=== PATIENT | male | born 1985 | race Caucasian/White ===

== ENCOUNTER 2017-02-10 11:08 | Outpatient (CLI) ==
[2015-04-29 09:22] VITALS: BMI 29.0
[2017-02-10 11:36] LABS: BASOPHILS % (AUTO) 0.5 % (0.0-3.0); EOSINOPHILS # (AUTO) 0.3 K/ul (0.0-0.7); EOSINOPHILS % (AUTO) 3.9 % (0.0-7.0); HEMATOCRIT 44.4 % (42.0-52.0); HEMOGLOBIN 15.5 g/dl (14.0-18.0); IMMATURE GRANULOCYTE % (AUTO) 0.5 % (0.0-5.0); LYMPHOCYTES # (AUTO) 2.3 K/uL (0.60-3.4); LYMPHOCYTES % (AUTO) 27.6 (10.0-50.0); MEAN CORPUSCULAR HEMOGLOBIN 29.2 pg (27.0-31.0); MEAN CORPUSCULAR HGB CONC 34.9 (31.8-35.4); MEAN CORPUSCULAR VOLUME 83.8 fl (80.0-94.0); MONOCYTES # (AUTO) 0.9 K/uL (0.4-2.0); MONOCYTES % (AUTO) 10.9 (0-10); NEUTROPHILS # (AUTO) 4.7 K/ul (2.0-6.9); NEUTROPHILS % (AUTO) 56.6; PLATELET COUNT 262 10^3/uL (140-440); WHITE BLOOD COUNT 8.37 K/ul (4.2-10.2)
[2017-02-10 11:41] LABS: BILIRUBIN,URINE Negative (NEGATIVE); KETONES,URINE Negative (NEGATIVE); LEUKOCYTE ESTERASE ,URINE Negative (NEGATIVE); NITRITE,URINE Negative (NEGATIVE); PROTEIN,URINE Negative (NEGATIVE); URINE, BLOOD Negative (NEGATIVE)
[2017-02-10 11:53] LABS: ADD URINE MICROSCOPIC NO
[2017-02-10 11:54] LABS: COCAIN SCREEN,URINE POSITIVE (NEGATIVE)
[2017-02-10 12:17] LABS: ALBUMIN 3.9 g/dL (3.4-5.0); ALBUMIN/GLOBULIN RATIO 1.22; ANION GAP 15.1; BILIRUBIN,TOTAL 0.32 mg/dL (0.00-1.20); BUN/CREATININE RATIO 11.22; CALCIUM 9.5 mg/dL (8.2-10.2); CHOL/HDL RATIO 3.6 (4.5-6.4); CREATININE 0.98 mg/dL (0.60-1.10); POTASSIUM 4.1 mmol/L (3.5-5.1); TOTAL PROTEIN 7.1 g/dL (6.4-8.2)
== END 2017-02-10 11:09 | disposition home or self-care (01) ==
LOC: LAB 11:08
PROVIDERS: ATTEND Family Medicine
DX: Z00.00 Encounter for general adult medical examination without abnormal findings (principal)
CPT/HCPCS: 36415; 80053; 80061; 80306; 81001; 84439; 84443; 85025

== ENCOUNTER 2017-04-03 11:47 | Outpatient (CLI) ==
[2015-04-29 09:22] VITALS: BMI 29.0
== END 2017-04-03 11:48 | disposition home or self-care (01) ==
LOC: CAR 11:47
PROVIDERS: ATTEND Family Medicine
DX: R00.0 Tachycardia, unspecified (principal); Z86.59 Personal history of other mental and behavioral disorders
CPT/HCPCS: 93005; 93010

== ENCOUNTER 2017-04-13 15:23 | Emergency (ER) ==
[2017-04-13 15:29] VITALS: BP 112/75; TEMP 98; BMI 27.4
[2017-04-13] MEDS ORDERED: LIDOCAINE HCL 4% 5 ML AMP INJ STA (15:31)
[2017-04-13] MEDS ORDERED: TETANUS DIPHTHERIA TOXOIDS IM ONE (15:32)
[2017-04-13] MEDS ORDERED: LIDOCAINE HCL 1% SDV ONE (15:37)
--- NOTE | 2017-04-13 15:46 | ED.PDOC ---
General ED Provider: Dr. LIANA HORTA-ER Chief Complaint: Hand Laceration Stated Complaint: i was handling a commode and it cut my finger Time Seen by Physician: 15:44 Mode of Arrival: Walk-In Information Source: Patient Exam Limitations: No limitations Primary Care Provider: GUILLERMO CHATTERJEE Nursing and Triage Documentation Reviewed and Agree: Yes Skin Complaint Exam - Laceration/Abrasion/Hand Complaint/Exam Location of Injury: Right, Digit #1 Mechanism of Injury: Laceration Onset/Duration: 30 min Symptoms Are: Still present Initial Severity: Mild Current Severity: Mild Aggravating: Movement Alleviating: Compression Associated Signs and Symptoms: Denies: Fever, Chills, Erythema, Numbness, Tingling Related History: Reports: Right hand dominant Differential Diagnoses: Laceration Review of Systems - Review Of Systems Constitutional: Reports: No symptoms Eyes: Reports: No symptoms Ears, Nose, Mouth, Throat: Reports: No symptoms Respiratory: Reports: No symptoms Cardiac: Reports: No symptoms GI: Reports: No symptoms : Reports: No symptoms Musculoskeletal: Reports: No symptoms Skin: Reports: No symptoms Neurological: Reports: No symptoms Endocrine: Reports: No symptoms Hematologic/Lymphatic: Reports: No symptoms All Other Systems: Reviewed and Negative Past Medical History - Past Medical History Previously Healthy: Yes Endocrine: Reports: None Cardiovascular: Reports: None Respiratory: Reports: None Hematological: Reports: None Gastrointestinal: Reports: None Genitourinary: Reports: None Neuro/Psych: Reports: None Musculoskeletal: Reports: Other Cancer: Reports: None - Surgical History General Surgical History: Reports: None - Family History Family History: Reports: Unknown - Social History Smoking Status: Current every day smoker Hx Substance Use: No Alcohol Screening: None Lives: With family - Immunizations Tetanus Shot up to Date: No Physical Exam - Physical Exam Appearance: Well-appearing, No pain distress, Well-nourished Pain Distress: Mild Eyes: YUNIOR, EOMI, Conjunctiva clear ENT: Ears normal, Nose normal, Oropharynx normal Neck: Supple Respiratory: Airway patent, Breath sounds clear, Breath sounds equal, Respirations nonlabored Cardiovascular: RRR, Pulses normal, No rub, No murmur GI/: Soft, Nontender, No masses, Bowel sounds normal, No Organomegaly Musculoskeletal: Normal strength, ROM intact, No edema, No calf tenderness Skin: Warm Neurological: Sensation intact Psychiatric: Affect appropriate, Mood appropriate Interpretation - Radiology Interpretation Radiology Interpretation By: ED Physician Radiology Results: Negative Procedures - Laceration/Wound Repair No standard instances Wound Description: Linear Wound Length (cm): 1.25cm base of right index finger Wound Explored: Clean Wound Irrigated: Yes Wound Prep: Hibiclens Anesthesia: Lidocaine Wound Debrided: Minimal Wound Margins: Revised Wound Repaired With: Sutures Suture Size and Type: 3 4.0 prolene Number of Sutures: 3 Layer Closure?: No Sterile Dressing Applied?: Yes Sling Applied?: No Re-Evaluation - Re-Evaluation Time of Re-Evaluation: 15:47 Status: Improved (good flexion and extension--no tendon involvement--cap refill less than 1sec) Vital Signs Stable: Yes Pain Level: 1 Appearance: NAD Lungs: Clear Skin: Warm and Dry Neuro: Alert and Oriented X3 CV: RRR Critical Care Note - Critical Care Note Total Time (mins): 0 Course - Course Orders, Labs, Meds: Orders Category Date Time Status Lidocaine HCl/Pf [Lidocaine HCl 1% Sdv] MEDS 04/13/17 15:37 Discontinued 5 ml .ROUTE .STK-MED ONE Lidocaine HCl/Pf [Lidocaine HCl 4% 5 ml Amp] MEDS 04/13/17 15:31 Discontinued 1 ml INJ ONCE STA Tetanus, Diphtheria Tox,Adult [Tetanus Diphtheria MEDS 04/13/17 15:32 Discontinued Toxoids] 0.5 ml IM .ONCE ONE FINGER(S) RIGHT MIN 2V Stat RADS 04/13/17 15:42 Taken Medications Discontinued Medications Generic Name Dose Route Start Last Admin Trade Name Freq PRN Reason Stop Dose Admin Lidocaine HCl 1 ml 04/13/17 15:31 04/13/17 15:42 Lidocaine Hcl 4% 5 Ml Amp INJ 04/13/17 15:32 Not Given ONCE STA Tetanus/Diphtheria Toxoids 0.5 ml 04/13/17 15:32 04/13/17 15:42 Tetanus Diphtheria Toxoids IM 04/13/17 15:33 0.5 ml .ONCE ONE Administration Vital Signs: Temp Pulse Resp BP Pulse Ox 04/13/17 15:24 98.0 F 106 H 20 112/75 98 Departure - Departure Time of Disposition: 15:47 Disposition: HOME SELF-CARE Discharge Problem: Laceration of hand Instructions: Finger Laceration (ED) Condition: Good Pt referred to PMD for follow-up: Yes Additional Instructions: keep clean and dry-routine suture care--sutures out in 7 days--return if any signs of infection Allergies/Adverse Reactions: Allergies No Known Allergies Allergy (Verified 04/13/17 15:27) Home Medications: Ambulatory Orders Fluoxetine HCl [Prozac] 20 mg PO DAILY 04/13/17 Disposition Discussed With: Patient
--- NOTE | 2017-04-13 16:06 | DI ---
EXAM: Three views of the right fingers. History: Right finger trauma. Findings: No acute fracture or dislocation. No abnormal calcifications or radiopaque foreign bodies . Joint spaces are preserved. Soft tissue swelling of the second digit. Impression: No acute osseous abnormality.
== END 2017-04-13 16:01 | disposition home or self-care (01) ==
LOC: ED 15:23
DX: S61.210A Laceration without foreign body of right index finger without damage to nail, initial encounter (principal); W45.8XXA Other foreign body or object entering through skin, initial encounter; F17.210 Nicotine dependence, cigarettes, uncomplicated
CPT/HCPCS: 90471; 90714; 99283